=== PATIENT | female | born 1965 | race African-American/Black ===

== ENCOUNTER 2020-04-12 11:24 | Emergency (ER) | payer MEDICARE, MEDICAID, SELFPAY ==
--- NOTE | ~2020-04-12 | XR_ITS ---
EXAMINATION: XR abdomen/kub 1V DATE: 04/12/2020 12:16 INDICATION: Abdominal pain. TECHNIQUE: A supine view of the abdomen on 2 radiographs was obtained. COMPARISON: None. FINDINGS: There are no dilated loops of bowel. There is a moderate volume of stool in the colon. Calc ifications in the pelvis are likely vascular. There are surgical clips in left upper quadrant. IMPRESSION: 1. Nonobstructive bowel gas pattern. Reviewed, dictated and finalized at location A.
--- NOTE | 2020-04-12 11:37 | ED.ABDPAIN ---
HPI - Abdominal Pain General Chief Complaint: Abdominal Pain Stated Complaint: ABD PAIN Time Seen by Provider: 04/12/20 12:20 Source: patient and RN notes reviewed Mode of arrival: ambulatory Limitations: no limitations History of Present Illness HPI narrative: 54-year-old female with history of gastric bypass presents with concern for lower quadrant abdominal pain that can radiate to the back. She reports intermittent symptoms started 3 days ago. Reports her last bowel movement was 2 days ago, normally has a daily bowel movement. Reports decreased urine output, dark-colored urine. Denies vomiting, diarrhea, fever, decreased appetite, abnormal vaginal discharge or bleeding. MD elicited complaint: abdominal pain Related Data Home Medications Medication Instructions Recorded Confirmed pomalidomide [Pomalyst] mg PO 04/12/20 Allergies Allergy/AdvReac Type Severity Reaction Status Date / Time Penicillins Allergy Intermediate Confusion Verified 05/23/19 17:46 Review of Systems Review of Systems: Narrative: CONSTITUTIONAL: Denies malaise, chills, sweats, or fever. CARDIOVASCULAR: Denies chest pain, palpitations, or edema. RESPIRATORY: Denies dyspnea. GASTROINTESTINAL: Reports bilateral lower abdominal pain. Denies nausea, vomiting, diarrhea, bloody, or mucous stools. GENITOURINARY: Denies dysuria or hematuria. SKIN: Denies rash or itching. MUSCULOSKELETAL: Reports low back pain. Denies joint pain, or myalgia. All systems reviewed & are unremarkable except as noted in HPI and below PMFSH Comments At time of signature, agree with nursing past medical, surgical, social and family history. There is no relevant family history pertinent to the presenting complaint Exam Narrative: Exam Narrative: GENERAL: Well-appearing, well-nourished, and in no acute distress. HEAD: Normocephalic, atraumatic. EYES: PERRLA, conjunctivae clear, and EOMI. ENT: Mucous membranes moist. NECK: Supple. No lymphadenopathy CHEST: Speaks in full sentences. No respiratory distress. HEART: Regular rate and rhythm. ABDOMEN: Soft, obese. No guarding, rebound tenderness, or rigidity. No pulsatilla masses. Bowel sounds present in all four quadrants. No organomegaly. Negative Serra?s sign. No periumbilical tenderness. No Supra public tenderness or distension. No hernia noted. Laparoscopic scars noted SKIN: Warm, dry, no rash. NEURO: Alert and oriented x3. PSYCH: Normal mood and affect Course Course Emergency Course: Discussed with patient limited diagnostic capability at [facility], offered further evaluation at the emergency department. Patient reports at this time she would like to avoid the emergency room, and would like to try interventions for constipation. Patient understands reasons that she should go to the emergency department if symptoms worsen or do not improve. This patient is nontoxic appearing. Patient understands and agrees to treatment plan. Anticipatory guidance given. Patient agrees to follow-up as directed and is aware of reasons to seek care at the emergency department. Portions of this record may have been created with voice recognition software Vital Signs Vital signs: Vital Signs Temperature 98.8 F 04/12/20 11:38 Pulse Rate 79 04/12/20 11:38 Respiratory Rate 16 04/12/20 11:38 Blood Pressure 129/92 H 04/12/20 11:38 Pulse Oximetry 100 04/12/20 11:38 Temperature 98.8 F 04/12/20 11:38 Pulse Rate 79 04/12/20 11:38 Respiratory Rate 16 04/12/20 11:38 Blood Pressure 129/92 H 04/12/20 11:38 Pulse Oximetry 100 04/12/20 11:38 Reviewed. Patient has been instructed to follow up with her primary care provider within the next week regarding her elevated blood pressure today. MDM - Abdominal Pain MDM Narrative Medical decision making narrative: No evidence of pancreatitis, AAA, cholecystitis, choledocholithiasis, cholangitis, mesenteric ischemia, small bowel obstruction, appendicitis, or pelvic cameron
[2020-04-12 11:38] VITALS: BP 129/92; PULSE 79; RESP 16; TEMP 37.1; O2SAT 100
--- NOTE | 2020-04-12 12:05 | PC.NURSE ---
1154 in br to obtain ua spec. 1202 in xray
== END 2020-04-12 12:39 | disposition home or self-care (01) ==
PROVIDERS: Emergency Provider Nurse Practitioner
DX: K59.00 Constipation, unspecified (principal); Z98.84 Bariatric surgery status; Z85.79 Personal history of other malignant neoplasms of lymphoid, hematopoietic and related tissues; Z92.21 Personal history of antineoplastic chemotherapy; Z94.84 Stem cells transplant status
CPT/HCPCS: 74018; 81003; 99213; G0463